=== PATIENT | male | born 1960 | race Two or more races ===

== ENCOUNTER 2024-07-26 14:20 | Outpatient (AMB) | payer MEDICAID, SELFPAY ==
[2024-07-26 14:29] VITALS: BP 146/82; PULSE 71; RESP 17; TEMP 36.6; O2SAT 97
--- NOTE | 2024-07-26 14:29 | PD.RESCLINIC ---
Vital Signs 07/26/24 14:29 Weight 80.739 kg Weight Measurement Method Standing Scale BP 146/82 H Blood Pressure Source Automatic Cuff Blood Pressure Location Left Upper Arm Position Sitting Respiration 17 Pulse 71 Pulse Source Monitor Temp 97.8 F Temp Source Oral Pulse Oximetry (%) 97 Oxygen Delivery Method Room Air Allergies/Meds Allergies & Medications Allergies No Known Allergies Allergy (Verified 07/26/24 14:30) Medication Reconciliation acetaminophen 500 mg tablet 1,000 mg (2 x 500 mg) PO Q8HR PRN pain #100 tabs 06/28/24 [Rx Confirmed 07/26/24] amiloride 5 mg tablet 5 mg PO QDAY HTN 30 days #30 tabs 07/26/24 [Rx] tadalafil 20 mg tablet (Cialis) 20 mg PO QDAY PRN sexual activity #30 tabs 07/26/24 [Rx] MA Intake Visit Data Collection New Patient or Established: Established Patient (seen at [facility] within 3 years) Seen by Clinical Staff ONLY (RN/MA): No Pain Present Currently: No Pain scale:: 0 PCP or OBGYN visit in last 3 months: Yes Do You Feel Safe at Home: Yes Authorities Contacted: N/A Smoking Status Smoking Status: Light (< 1 pack/day) Cessation Counseling Provided: NICOLE was advised that quitting smoking is the single most important factor to protect the health of themselves and their family. Discussed the benefits of quitting smoking with patient. Encouraged patient to quit smoking and provided Cessation assistance materials and resources. Tobacco Use: Cigarette Years smoked: 20 Are you interested in quitting?: Yes Would you like additional Smoking Cessation Counseling?: Yes Immunization / Flu Flu Vaccine in the Last 12 Months: No Flu Vaccine Exclusion Criteria: No Exclusion Criteria Past Medical History Past Medical History CARDIAC: Negative Congestive Heart Failure RESPIRATORY: Negative Chronic Obstructive Pulmonary Disease (COPD) GENITOURINARY: Positive Prostate Cancer (prostatectomy); Negative Renal Disease ENDOCRINE: Negative Diabetes Mellitus Type 1 or Diabetes Mellitus Type 2 OTHER HISTORY: Positive Cancer and Prostate Cancer (prostatectomy) Social History SMOKING STATUS: Smoking status: Light (< 1 pack/day) ALCOHOL: Alcohol Intake: Former ALCOHOL FREQUENCY: Alcohol Intake Frequency: 3 or More Drinks per Day LIVES WITH: Lives With: Children Patient Portal Questionaires Social History Tobacco History Smoking Status: Light (< 1 pack/day) Alcohol History Alcohol Intake: Former Alcohol Intake Frequency: 3 or More Drinks per Day Domestic Abuse History Do You Feel Safe at Home: Yes Review of Systems Report any current symptoms Only answer those that you have currently: Past Medical History Past Medical History Have you ever been diagnosed with any of the following: Cardiology Problems Congestive Heart Failure: No Respiratory Problems Chronic Obstructive Pulmonary Disease (COPD): No Genital/Urinary Problems Renal Disease: No Prostate Cancer: Yes (prostatectomy) Endocrine Problems Diabetes Mellitus Type 1: No Diabetes Mellitus Type 2: No Other Problems Cancer: Yes History of Present Illness HPI Narrative Patient is here for follow up. Patient is much better. No additional complaints. Has followed up with Dr Bradford. Review of Systems Review of Systems Systems Reviewed: All systems reviewed, normal except as documented Objective/Exam Narrative Physical exam: Constitutional: AOx3, able to speak full sentences HEENT: NC/AT, PERRLA, oral mucosa moist, neck supple CVS: RRR, S1-S2 present, no murmurs RESP: CTAB GI: non distended, non tender to palpation, NBS MSK: full ROM, no peripheral edema, peripheral pulses present Skin: warm and dry, no rashes Neuro: client success director II-XII grossly intact. Sensation grossly intact. Assessment & Plan Diagnosis / Problem List (1) Pseudohyperaldosteronism: Status: Acute Assessment & Plan: K levels under control Has seen Dr Bradford, currently only on amiloride Plan: -monitor CMP -cont amiloride Orders: Orders Comprehensive Metabolic Panel 90 Days I15.1 - Hypertension secondary to other renal disorders Prostate Specific Antigen 90 Days C61 - Malignant neoplasm of prostate Additional Assessment Attending note: I, Gregory Allen MD, attest that I was physically present for the prabhakar portions of the service and evaluated the patient with the resident and I reviewed and discussed the case with the resident and agree with the resident's findings and plans of care as documented above. Patient has seen nephrology. Currently only on amiloride. Blood pressure mildly elevated today but was in range on previous visits. Will recheck a CMP to monitor potassium levels. Gregory Allen MD Office Procedures [facility] Level of Care Nursing/Assessment Patient Status: Established Patient Nursing Assessment/Reassessment: Medication Reconciliation, Update PMH in EMR and Vital Signs Coordination of Care: Complex Care and Chronic Disease 1-5, Education Complex Pt/Fam, Results/Orders obtained and Staff clarify orders Established Patient Charge Established Patient Point Assignment: 90 Established Patient Point Charge: EP Level 3 (80-115)
== END 2024-07-26 15:13 | disposition home or self-care (01) ==
PROVIDERS: PCP Student in an Organized Health Care Education/Training Program; Referring Provider Student in an Organized Health Care Education/Training Program; Supervising Provider Internal Medicine; Visit Provider Student in an Organized Health Care Education/Training Program
DX: E26.89 Other hyperaldosteronism (principal)
CPT/HCPCS: 99213; G0463

== ENCOUNTER 2025-02-28 15:27 | Outpatient (AMB) | payer MEDICAID, SELFPAY ==
[2025-02-28 16:40] VITALS: BP 135/80; PULSE 80; RESP 18; TEMP 36.6; O2SAT 95; BMI 28.3
--- NOTE | 2025-02-28 16:40 | PD.RESCLINIC ---
Vital Signs 02/28/25 16:40 Height 1.68 m Height Method Stated Weight 80.002 kg Weight Measurement Method Standing Scale BMI 28.3 BP 135/80 H Blood Pressure Source Automatic Cuff Blood Pressure Location Right Upper Arm Position Sitting Respiration 18 Pulse 80 Pulse Source Monitor Temp 97.8 F Temp Source Temporal Artery Scan Pulse Oximetry (%) 95 Oxygen Delivery Method Room Air Allergies/Meds Allergies & Medications Allergies No Known Allergies Allergy (Verified 02/28/25 16:41) Medication Reconciliation acetaminophen 500 mg tablet 1,000 mg (2 x 500 mg) PO Q8HR PRN pain #100 tabs 06/28/24 [Rx Confirmed 02/28/25] amiloride 5 mg tablet 5 mg PO QDAY HTN 30 days #30 tabs 07/26/24 [Rx Confirmed 02/28/25] tadalafil 20 mg tablet (Cialis) 20 mg PO QDAY PRN sexual activity #30 tabs 07/26/24 [Rx Confirmed 02/28/25] MA Intake Visit Data Collection New Patient or Established: Established Patient (seen at [facility] within 3 years) Seen by Clinical Staff ONLY (RN/MA): No Pain Present Currently: No Pain scale:: 0 Pain Scale Used: Meade-Lawson/Numerical Mail Handler Required: No PCP or OBGYN visit in last 3 months: No Hx Now: No Do You Feel Safe at Home: Yes Authorities Contacted: N/A Smoking Status Smoking Status: Light (< 1 pack/day) Cessation Counseling Provided: NIOCLE was advised that quitting smoking is the single most important factor to protect the health of themselves and their family. Discussed the benefits of quitting smoking with patient. Encouraged patient to quit smoking and provided Cessation assistance materials and resources. Tobacco Use: Cigarette Years smoked: 0 Are you interested in quitting?: Yes Would you like additional Smoking Cessation Counseling?: Yes Immunization / Flu Flu Vaccine in the Last 12 Months: No Flu Vaccine Exclusion Criteria: No Exclusion Criteria Past Medical History Past Medical History CARDIAC: Negative Congestive Heart Failure RESPIRATORY: Negative Chronic Obstructive Pulmonary Disease (COPD) GENITOURINARY: Positive Prostate Cancer (prostatectomy); Negative Renal Disease ENDOCRINE: Negative Diabetes Mellitus Type 1 or Diabetes Mellitus Type 2 OTHER HISTORY: Positive Cancer and Prostate Cancer (prostatectomy) Social History SMOKING STATUS: Smoking status: Light (< 1 pack/day) ALCOHOL: Alcohol Intake: Former ALCOHOL FREQUENCY: Alcohol Intake Frequency: 3 or More Drinks per Day LIVES WITH: Lives With: Children Patient Portal Questionaires Social History Tobacco History Smoking Status: Light (< 1 pack/day) Alcohol History Alcohol Intake: Former Alcohol Intake Frequency: 3 or More Drinks per Day Domestic Abuse History Do You Feel Safe at Home: Yes Review of Systems Report any current symptoms Only answer those that you have currently: Past Medical History Past Medical History Have you ever been diagnosed with any of the following: Cardiology Problems Congestive Heart Failure: No Respiratory Problems Chronic Obstructive Pulmonary Disease (COPD): No Genital/Urinary Problems Renal Disease: No Prostate Cancer: Yes (prostatectomy) Endocrine Problems Diabetes Mellitus Type 1: No Diabetes Mellitus Type 2: No Other Problems Cancer: Yes History of Present Illness HPI Narrative Patient is here for f/u for labs. Patient has hx of prostate cancer. Patient denies any complains. Objective/Exam Narrative Physical exam: Constitutional: AOx3, able to speak full sentences HEENT: NC/AT, PERRLA, oral mucosa moist, neck supple CVS: RRR, S1-S2 present, no murmurs RESP: CTAB GI: non distended, non tender to palpation, NBS MSK: full ROM, no peripheral edema, peripheral pulses present Skin: warm and dry, no rashes Neuro: mechanical research engineer II-XII grossly intact. Sensation grossly intact. Assessment & Plan Diagnosis / Problem List (1) Pseudohyperaldosteronism: Status: Acute Assessment & Plan: K levels under control Has seen Dr Bradford, currently only on amiloride Plan: -monitor CMP -cont amiloride (2) Prostate cancer: Status: Acute Assessment & Plan: stable PSA Plan: -follow in 3 months with PSA level Office Procedures [facility] Level of Care Nursing/Assessment Patient Status: Established Patient Nursing Assessment/Reassessment: Medication Reconciliation, Update PMH in EMR and Vital Signs Coordination of Care: Complex Care and Chronic Disease 1-5, Consent,records obtained, informed consent, Education Simp Pt/Fam, Lab and Imaging orders and Staff clarify orders Established Patient Charge Established Patient Point Assignment: 100 Established Patient Point Charge: Level 3 (80-115)
== END 2025-02-28 15:59 | disposition home or self-care (01) ==
LOC: HODAHC 15:27
PROVIDERS: PCP Student in an Organized Health Care Education/Training Program; Referring Provider Student in an Organized Health Care Education/Training Program; Supervising Provider Internal Medicine; Visit Provider Student in an Organized Health Care Education/Training Program
DX: E26.89 Other hyperaldosteronism (principal); C61 Malignant neoplasm of prostate
CPT/HCPCS: 99213; G0463

== ENCOUNTER 2025-07-09 14:48 | Outpatient (AMB) | payer MEDICAID, SELFPAY ==
[2025-07-09 14:58] VITALS: BP 162/83; PULSE 76; RESP 18; TEMP 36.8; O2SAT 95; BMI 25.9
--- NOTE | 2025-07-09 14:58 | ACNOTE_ITS ---
Vital Signs 07/09/25 14:58 Height 1.68 m Height Method Stated Weight 73.255 kg Weight Measurement Method Standing Scale BMI 25.9 BP 162/83 H Blood Pressure Source Automatic Cuff Blood Pressure Location Right Upper Arm Position Sitting Respiration 18 Pulse 76 Pulse Source Monitor Temp 98.3 F Temp Source Oral Pulse Oximetry (%) 95 Oxygen Delivery Method Room Air Allergies/Meds Allergies & Medications Allergies No Known Allergies Allergy (Verified 07/09/25 14:59) Medication Reconciliation acetaminophen 500 mg tablet 1,000 mg (2 x 500 mg) PO Q8HR PRN pain #100 tabs 06/28/24 [Rx Confirmed 07/09/25] amiloride 5 mg tablet 5 mg PO QDAY HTN 30 days #30 tabs 07/26/24 [Rx Confirmed 07/09/25] tadalafil 20 mg tablet (Cialis) 20 mg PO QDAY PRN sexual activity #30 tabs 07/26/24 [Rx Confirmed 07/09/25] MA Intake Visit Data Collection New Patient or Established: Established Patient (seen at [facility] within 3 years) Seen by Clinical Staff ONLY (RN/MA): No Pain Present Currently: No Pain scale:: 0 Pain Scale Used: Meade-Lawson/Numerical PCP or OBGYN visit in last 3 months: No Do You Feel Safe at Home: Yes Smoking Status Smoking Status: Light (< 1 pack/day) Cessation Counseling Provided: NICOLE was advised that quitting smoking is the single most important factor to protect the health of themselves and their family. Discussed the benefits of quitting smoking with patient. Encouraged patient to quit smoking and provided Cessation assistance materials and resources. Tobacco Use: Cigarette Years smoked: 50 Are you interested in quitting?: No Immunization / Flu Flu Vaccine in the Last 12 Months: No Flu Vaccine Exclusion Criteria: No Exclusion Criteria Past Medical History Past Medical History CARDIAC: Negative Congestive Heart Failure RESPIRATORY: Negative Chronic Obstructive Pulmonary Disease (COPD) GENITOURINARY: Positive Prostate Cancer (prostatectomy); Negative Renal Disease ENDOCRINE: Negative Diabetes Mellitus Type 1 or Diabetes Mellitus Type 2 OTHER HISTORY: Positive Cancer and Prostate Cancer (prostatectomy) Social History SMOKING STATUS: Smoking status: Light (< 1 pack/day) ALCOHOL: Alcohol Intake: Former ALCOHOL FREQUENCY: Alcohol Intake Frequency: 3 or More Drinks per Day LIVES WITH: Lives With: Children Patient Portal Questionaires Social History Tobacco History Smoking Status: Light (< 1 pack/day) Alcohol History Alcohol Intake: Former Alcohol Intake Frequency: 3 or More Drinks per Day Domestic Abuse History Do You Feel Safe at Home: Yes Review of Systems Report any current symptoms Only answer those that you have currently: Past Medical History Past Medical History Have you ever been diagnosed with any of the following: Cardiology Problems Congestive Heart Failure: No Respiratory Problems Chronic Obstructive Pulmonary Disease (COPD): No Genital/Urinary Problems Renal Disease: No Prostate Cancer: Yes (prostatectomy) Endocrine Problems Diabetes Mellitus Type 1: No Diabetes Mellitus Type 2: No Other Problems Cancer: Yes History of Present Illness HPI Narrative Patient here fo F/U on labs. Labs were reviewed. Patient stated he was having burning sensation with urination, will order UA and start macrobid. Also advised patient to get colonoscopy for cancer screening, but refused. Will get CT scan for lung cancer screening, patient agreed, but will go to [place] and when he comes back will have scan done. No need for medication refills, recently saw tumbling and rolling supervisor. Review of Systems Review of Systems Narrative Review of Systems: Constitutional: Denies sweats, Denies weight loss/gain, Denies fever, Denies chills. HEENT: Denies hearing loss, Denies ear pain, Denies postnasal drip, Denies double vision, Denies blurry vision. Respiratory: Denies shortness of breath, Denies cough, Denies wheezing. Cardiovascular: Denies chest pain, Denies palpitations, Denies sudden loss of consciousness. GI: Denies blood in stool, Denies constipation, Denies abdominal pain, Denies difficulty swallowing, Denies nausea or vomit. : Denies urinary incontinence, Admits pain while urinating, Denies increased urinary frequency. MSK: Denies joint pain, Denies joint swelling, Denies numbness. Skin: Denies rash, Denies itching, Denies easy bruising. Neuro: Denies headaches, Denies dizziness, Denies seizures. Objective/Exam Narrative Physical exam: General: A/O x3, no acute distress Eyes: PERRL, EOMI. Anicteric, vision grossly intact. Ears: No ear pain, no ear discharge, Hearing grossly intact. Nose: No nasal discharge. Mouth/Throat: Moist mucous membranes, no redness, no lesions. Neck: Neck supple, non-tender, no cervical lymphadenopathy. Lungs: Clear JAMIL to auscultation and percussion, No accessory muscle use. Cardio: Normal S1/S2, regular rhythm, no murmurs, no JVD or carotid bruits. Abdomen: Soft, non-tender, no palpable masses, peristalsis present, no guarding or rebound. Extremities: Symmetrical, no significant deformities, no peripheral edema , non-tender, peripheral pulses presents. Skin: No rashes, no lesions, warm to touch. Neuro: No focal neurological deficits. Psych: Cooperative, appropriate mood and effect. Assessment & Plan Diagnosis / Problem List (1) UTI (urinary tract infection): Status: Acute Qualifiers: Urinary tract infection type: site unspecified Hematuria presence: without hematuria Qualified Code(s): N39.0 - Urinary tract infection, site not specified Assessment & Plan: Burning sensation during urination Plan: Ordered UA Ordered Macrobid for 7 days (2) Pseudohyperaldosteronism: Status: Acute Assessment & Plan: K levels under control Has seen Dr Bradford, currently only on amiloride Plan: -monitor CMP -cont amiloride (3) Prostate cancer: Status: Acute Assessment & Plan: stable PSA 0.3 06/2025 Plan: -follow in 4 months with PSA level (4) Encounter for screening for malignant neoplasm of lung: Status: Acute Assessment & Plan: patient is a smoker for 40+ years 2-3 ppweek Plan: ordered low dose CT scan (5) Prediabetes: Status: Acute Assessment & Plan: A1c 5.7 on 06/2025 Plan: Advised lifestyle changes including diet and exercises Will repeat in 4 months if worsening will consider metformin (6) Hyperlipidemia: Status: Acute Qualifiers: Hyperlipidemia type: unspecified Qualified Code(s): E78.5 - Hyperlipidemia, unspecified Assessment & Plan: LDL 106 Plan: Advised low fat diet and exercise Will repeat in 4 months if no improvement will start a statin Office Procedures [facility] Level of Care Nursing/Assessment Patient Status: Established Patient Nursing Assessment/Reassessment: Medication Reconciliation, Update PMH in EMR and Vital Signs Coordination of Care: Complex Care and Chronic Disease 1-5, Education Complex Pt/Fam, Results/Orders obtained and Staff clarify orders Established Patient Charge Established Patient Point Assignment: 90 Established Patient Point Charge: Level 3 (80-115)
== END 2025-07-09 15:35 | disposition home or self-care (01) ==
LOC: HODAHC 14:48
PROVIDERS: Supervising Provider Internal Medicine; Visit Provider Internal Medicine
DX: N39.0 Urinary tract infection, site not specified (principal); C61 Malignant neoplasm of prostate; F17.210 Nicotine dependence, cigarettes, uncomplicated; R73.03 Prediabetes; E78.5 Hyperlipidemia, unspecified; E26.89 Other hyperaldosteronism
CPT/HCPCS: 99213; G0463

== ENCOUNTER 2025-07-16 13:37 | Outpatient (AMB) | payer MEDICAID, SELFPAY ==
--- NOTE | 2025-07-16 13:36 | ACNOTE_ITS ---
Allergies/Meds Allergies & Medications Allergies No Known Allergies Allergy (Verified 07/16/25 13:36) MA Intake Visit Data Collection New Patient or Established: Established Patient (seen at [facility] within 3 years) Seen by Clinical Staff ONLY (RN/MA): No PCP or OBGYN visit in last 3 months: Yes Smoking Status Smoking Status: Light (< 1 pack/day) Cessation Counseling Provided: NICOLE was advised that quitting smoking is the single most important factor to protect the health of themselves and their family. Discussed the benefits of quitting smoking with patient. Encouraged patient to quit smoking and provided Cessation assistance materials and resources. Tobacco Use: Cigarette Years smoked: 40 Are you interested in quitting?: No For Televisit only Telemed Video/Phone Visit: Yes Verbal consent obtained for Telemed visit?: Yes Verbal Consent witness name: DAVID Telemed Video/Phone visit w/Clinical Staff: 21-30 min Immunization / Flu Flu Vaccine in the Last 12 Months: No Flu Vaccine Exclusion Criteria: No Exclusion Criteria Past Medical History Past Medical History CARDIAC: Negative Congestive Heart Failure RESPIRATORY: Negative Chronic Obstructive Pulmonary Disease (COPD) GENITOURINARY: Positive Prostate Cancer (prostatectomy); Negative Renal Disease ENDOCRINE: Negative Diabetes Mellitus Type 1 or Diabetes Mellitus Type 2 OTHER HISTORY: Positive Cancer and Prostate Cancer (prostatectomy) Social History SMOKING STATUS: Smoking status: Light (< 1 pack/day) ALCOHOL: Alcohol Intake: Former ALCOHOL FREQUENCY: Alcohol Intake Frequency: 3 or More Drinks per Day LIVES WITH: Lives With: Children Patient Portal Questionaires Social History Tobacco History Smoking Status: Light (< 1 pack/day) Alcohol History Alcohol Intake: Former Alcohol Intake Frequency: 3 or More Drinks per Day Review of Systems Report any current symptoms Only answer those that you have currently: Past Medical History Past Medical History Have you ever been diagnosed with any of the following: Cardiology Problems Congestive Heart Failure: No Respiratory Problems Chronic Obstructive Pulmonary Disease (COPD): No Genital/Urinary Problems Renal Disease: No Prostate Cancer: Yes (prostatectomy) Endocrine Problems Diabetes Mellitus Type 1: No Diabetes Mellitus Type 2: No Other Problems Cancer: Yes History of Present Illness HPI Narrative Patient here fo F/U on labs. Labs were reviewed. Patient stated he was having burning sensation with urination, will order UA and start macrobid. Also advised patient to get colonoscopy for cancer screening, but refused. Will get CT scan for lung cancer screening, patient agreed, but will go to [place] and when he comes back will have scan done. No need for medication refills, recently saw gas main fitter. 07/13/25 - Telephone call for follow up on labs. On last visit 07/09/25, patient endorsed dysuria, for which he was given UA order and started on 7 day course of macrobid. UA 07/11/25 was negative for UTI. Still has 2 more days of macrobid. Denies dysuria, no other complaints. Was instructed to complete course. Review of Systems Review of Systems Narrative Review of Systems: Review of Systems General: Denies fevers or chills HEENT: Denies congestion or sore throat Heart: Denies chest pain or palpitations Lungs: Denies shortness of breath or cough Abdomen: Denies diarrhea, nausea, vomiting, constipation, bright red blood per rectum or melena Genitourinary: Denies frequency, urgency, dysuria, or hematuria Musculoskeletal: Denies joint pain or myalgias Neurology: Denies any changes in vision, weakness or difficulty speaking Review of systems otherwise negative except what is mentioned above. Assessment & Plan Diagnosis / Problem List (1) UTI (urinary tract infection): Status: Acute Qualifiers: Urinary tract infection type: site unspecified Hematuria presence: without hematuria Qualified Code(s): N39.0 - Urinary tract infection, site not specified Assessment & Plan: Follow up for dysuria on 07/09. No longer experiencing dysuria. UA negative. Completed 5 days of macrobid thus far. Plan: Complete 7 day course of macrobid. Encouraged patient to drink more water or cranberry juice to avoid recurrence. (2) Encounter for screening for malignant neoplasm of lung: Status: Acute Assessment & Plan: Smoking history of 40+ years, 2-3 packs per week Plan: Pending authorization for low dose CT scan. Will follow up with results. Plan Patient plan of care was discussed with the attending physician, Dr. Muhammad. Rehana Roca, PGY-1 Office Procedures [facility] Level of Care Nursing/Assessment Patient Status: Established Patient Nursing Assessment/Reassessment: Medication Reconciliation, Update PMH in EMR and Vital Signs Coordination of Care: Complex Care and Chronic Disease 1-5, Education Complex Pt/Fam, Results/Orders obtained and Staff clarify orders Established Patient Charge Established Patient Point Assignment: 90 Telehealth Telemed Phone/Video with patient at home & Dr,PA,PARTS ASSEMBLER: Yes
== END 2025-07-16 15:04 | disposition home or self-care (01) ==
LOC: HODAHC 13:37
PROVIDERS: Supervising Provider Internal Medicine
DX: N39.0 Urinary tract infection, site not specified (principal); F17.210 Nicotine dependence, cigarettes, uncomplicated
CPT/HCPCS: 99212; G0463